=== PATIENT | male | born 1960 | race Caucasian/White ===

== ENCOUNTER 2025-01-10 13:44 | Emergency (ER) | payer BC, SELFPAY ==
[2025-01-10 13:51] VITALS: BP 148/101
[2025-01-10 13:52] VITALS: BP 148/101
[2025-01-10 14:01] VITALS: BP 158/89
[2025-01-10 14:39] LABS: % Basophils 0.7 % (0-2); % Eosinophils 1.4 % (0-6); % Immature Granulocytes 0.5 % (0-0.5); % Lymphocytes 18.8 % (20.5-51.1); % Neutrophils 69.6 % (42.2-75.2); Absolute Eosinophils 0.1 10^3/uL (0-0.7); Absolute Lymphocytes 1.1 10^3/uL (1.2-3.4); Absolute Monocytes 0.5 10^3/uL (0.1-0.6); Absolute Neutrophils 4.1 10^3/uL (1.4-6.5); Hematocrit 40.1 % (39.0-52.0); Hemoglobin 13.8 g/dL (13.0-18.0); Mean Corp Hgb Conc. 34.4 g/dL (33.0-37.0); Mean Corpuscular Hgb 30.2 pg (27.0-31.0); Mean Corpuscular Volume 87.7 fL (80.0-94.0); Mean Platelet Volume 9.3 fL (7.4-10.4); Nucleated Red Blood Cells % 0 % (-); Platelet Count 165 10^3/uL (130-400); Red Blood Cell Count 4.57 10^6/uL (4.70-6.10); Red Cell Dist. Width 13.3 % (11.5-14.5); White Blood Cell Count 5.9 10^3/uL (4.8-10.8)
[2025-01-10 14:56] LABS: ALT (SGPT) 21 U/L (0-50); AST (SGOT) 20 U/L (17-59); Albumin 4.1 g/dl (3.5-5.0); Alkaline Phosphatase 62 U/L (38-126); Blood Urea Nitrogen 12 mg/dl (9-20); Calcium 9.1 mg/dl (8.4-10.2); Carbon Dioxide 26 mmol/L (22-30); Chloride 105 mmol/L (98-107); Glucose 94 mg/dl (70-99); Potassium 3.8 mmol/L (3.5-5.1); Sodium 140 mmol/L (135-145); Total Bilirubin 1.8 mg/dl (0.2-1.3); Total Protein 6.7 g/dl (6.3-8.2); eGFR > 60.00
[2025-01-10 15:20] LABS: Troponin I < 0.012 ng/ml
--- NOTE | 2025-01-10 15:24 | ED.GENMED ---
History of Present Illness
General
Chief Complaint: Numbness
Time Seen by Provider: 01/10/25 14:32
History of Present Illness
History of Present Illness:
65-year-old male presents the emergency department for evaluation of intermittent tingling and paresthesias to the left upper extremity for the past week. Symptoms seem to wax and wane without obvious provoking or palliating cause. He notes that
it worsened today while driving with his hand on the steering wheel. Seems to be improved as of now. The tingling sensation radiates from the neck down to the hand. Denies any arm weakness. Denies chest pain or shortness of breath.
Review of Systems
Review of Systems
Allergies reviewed?: Yes
All Other Systems: ROS reviewed and negative except as documented in HPI and ROS
Phy Exam
Physical Exam
Physical Exam:
GEN: Well appearing, NAD, WDWN
HEENT: Oral mucosa moist, no scleral icterus, no nasal congestion
Cardiac: Regular rate and rhythm, no murmurs
Lung: No respiratory distress, no tachypnea
MSK: No gross deformity or injuries
Skin: Good color, no pallor or jaundice, no rashes
Neuro: AO x3; CN II-XII grossly intact. BUE strength 5/5 in all donis, sensation intact and symmetric. BLE strength 5/5 in all donis, sensation intact and symmetric
Psych: Calm, cooperative
Course
Orders/Labs/Results
Orders:
Orders
01/10/25 13:49
EKG [Electrocardiogram (*1)] Urgent
Reason for Study: Fatigue / Weakness
01/10/25 13:50
EKG- Treatment ONCE
01/10/25 14:31
Complete Blood Count/With Diff Urgent
Comprehensive Metabolic Panel Urgent
Troponin I Urgent
01/10/25 15:24
Dexamethasone Sod Phosphate [Decadron] 6 mg IV NOW STA
Abnormal Lab Results
01/10/25
14:31
RBC 4.57 L 10^6/uL
(4.70-6.10)
Absolute Lymphs (auto) 1.1 L 10^3/uL
(1.2-3.4)
Lymphocytes % 18.8 L %
(20.5-51.1)
Total Bilirubin 1.8 H mg/dl
(0.2-1.3)
01/10/25 14:31
01/10/25 14:31
Vital Signs
Initial and Last Documented VS:
Initial Vital Signs
Temp Pulse Resp BP Pulse Ox
97.8 F 70 16 148/101 98
01/10/25 13:51 01/10/25 13:51 01/10/25 13:51 01/10/25 13:51 01/10/25 13:51
Last Documented Vital Signs
Temp Pulse Resp BP Pulse Ox
97.8 F 62 18 140/92 96
01/10/25 13:51 01/10/25 15:44 01/10/25 15:44 01/10/25 15:44 01/10/25 15:44
MDM/Problems Addressed
MDM/Problems Addressed:
Patient's workup is reassuring. This is most likely a cervical radiculopathy versus shoulder impingement scenario, he has no objective weakness and sensation is fully intact. Will treat with a steroid taper and recommend outpatient Ortho follow-up
*Critical Care Note
Total Time (30-74mins, 75-104mins- exclusive of procedures): Not Applicable
ED Attending Note
-
Portions of this chart may have been created with voice recognition software.� Occasional wrong word or��sound alike� substitutions may have occurred due to the inherent limitations of voice recognition software.
Discharge Plan
Departure
Patient Disposition: Home (Routine Discharge)
Date of Disposition: 01/10/25
Time of Disposition: 15:25
Patient with high blood pressure during this ER visit?: No
Discharge Problem:
Cervical radiculopathy
Instructions: Radiculopathy of the neck and back (including sciatica)
Prescriptions:
New
methylprednisolone [Medrol (Manjinder)] 4 mg tablets,dose pack
See Rx Instructions .ROUTE .COMPLEX Qty: 21 0RF
Rx Instructions:
orally per package directions
Referrals:
Jimbo Lizarraga MD [Active] -
Yuri Gu MD [Family Provider] -
Activity Restrictions/Additional Instructions:
Do not take NSAIDs (ibuprofen, naproxen, aspirin) while using the steroids
Follow up with Orthopedics for further evaluation
Interventions
Interventions:
*Risk Screen - Suicide Last Done: 01/10/25 13:57
*General Assessment Last Done: 01/10/25 14:02
*Neglect/Abuse Screening Last Done: 01/10/25 13:57
*ED- Fall Risk Assessment Last Done: 01/10/25 14:02
*ED COVID-19 Vaccine History Last Done: 01/10/25 14:02
*Nursing Disposition Last Done: 01/10/25 15:51
ED- Neurological Assessment Last Done: 01/10/25 14:02
Discharge Date and Time
Discharge Date/Time: 01/10/25 15:52
Print Language: ARMENIAN
[2025-01-10 15:44] VITALS: BP 140/92
[2025-01-10] MEDS: DECADRON 6 MG IV (15:45)
== END 2025-01-10 15:52 | disposition home or self-care (01) ==
LOC: EMR 13:44
PROVIDERS: EMERGENCY PHYSICIAN Emergency Medicine; FAMILY PHYSICIAN Hospitalist
DX: M54.12 Radiculopathy, cervical region (principal)
CPT/HCPCS: 99283; 80053; 84484; 85025; 93005

== ENCOUNTER → 2025-02-06 11:07 | Outpatient (REF) | payer BC, SELFPAY | LOC: RAD 11:07 | PROVIDERS: ATTENDING PHYSICIAN Internal Medicine Cardiovascular Disease; FAMILY PHYSICIAN Hospitalist | DX: R09.89 Other specified symptoms and signs involving the circulatory and respiratory systems (principal) | CPT/HCPCS: 93880 ==